=== PATIENT | male | born 1945 ===

== ENCOUNTER 2017-09-28 09:04 | Day surgery (SDC) | payer OTHER ==
[2017-09-28] MEDS ORDERED: Verapamil 2 ML ONE (09:24)
[2017-09-28] MEDS ORDERED: DiphenhydrAMINE 50 mg/ml Inj ONE (09:24)
[2017-09-28] MEDS ORDERED: Adenosine 90 mg/30mL IV ONE (09:24)
[2017-09-28] MEDS ORDERED: Lidocaine 2% Inj (20ml) ONE (09:24)
[2017-09-28] MEDS ORDERED: Iodixanol 320 MG/ML 200 ML BOTTLE IV ONE (09:25)
[2017-09-28] MEDS ORDERED: Midazolam 2 MG/2 ML VIAL ONE ×2 (09:25→10:33)
[2017-09-28] MEDS ORDERED: HEPARIN SODIUM/NS 2,000 ML IV ONE (09:25)
[2017-09-28] MEDS ORDERED: Bacitracin 500 Units/gm Oint Foilpak UD TOP ONE (11:38)
[2017-09-28] MEDS ORDERED: Heparin25000 units/250ml 1/2NS 25,000 UNITS/250 ML BAG IV SCH (12:45)
[2017-09-28] MEDS ORDERED: Bacitracin 500 Units/gm Oint Foilpak UD ONE (16:29)
[2017-09-28] MEDS ORDERED: Insulin Reg-LOW-Coverage SC SCH (16:30)
[2017-09-28 17:09] VITALS: BP 157/84
[2017-09-28 17:39] VITALS: RESP 15; TEMP 97.9
[2017-09-28 19:09] VITALS: PULSE 89
--- NOTE | 2017-09-28 21:42 | CARDCATH ---
PROCEDURE DATE: 09/28/2017 INDICATIONS: Mr. Isidro Couch is a 72-year-old male, who presented to [facility] with [id number] SC. The patient was transferred to [facility] for evaluation of [id number] SC. PROCEDURES PERFORMED: Left heart catheterization with selective left and right coronary angiogram via left radial arterial access. Fractional flow reserve of left after anterior descending and left circumflex coronary artery. Left ventriculogram. ANGIOGRAPHIC FINDINGS: Left main is a large-sized vessel, bifurcates into left anterior descending and left circumflex coronary artery. Left main has diffuse 40% stenosis, severely calcified with pressure damping noted on engagement with a guiding catheter. LAD has mid 80% stenosis. FFR physiologically significant at 0.71 without adenosine infusion. Diffuse proximal 50, distal vessel mild stenosis, gives off two medium-sized diagonal branches. Left circumflex runs in the AV groove, which gives a large obtuse marginal branch, has mid 65% stenosis. FFR physiologically significant at 0.77. Right coronary artery is a medium-sized vessel, diffusely calcified, 50% stenosis with a distal 90% stenosis. Right PD and PLV have diffuse 60% stenosis. Left ventriculogram showed normal ejection fraction. Left ventricular end-diastolic pressure was 21 mmHg. IMPRESSION: Severe triple-vessel disease, normal left ventricular ejection fraction. RECOMMENDATIONS: The patient needs to be transferred to [facility] for urgent CABG by Dr. Julio C Lakhani. Keep the patient on aspirin, statins, and IV heparin. The patient to be arranged for transfer for his further cardiovascular care. Hermilo Brooks MD
== END 2017-09-28 21:49 | disposition short-term general hospital (02) ==
LOC: CATH 09:04 → 2RNO 11:24 → CATH 21:49
PROVIDERS: ATTEND Internal Medicine Interventional Cardiology
DX: I21.4 Non-ST elevation (NSTEMI) myocardial infarction (principal); I25.10 Atherosclerotic heart disease of native coronary artery without angina pectoris
CPT/HCPCS: 36415; 82948; 85730; 93458; 93571; 93572; 99152; C1769 ×2; C1887 ×2; C1894; J0153; J1200; J1644 ×3; J2250; J3010; J7030

== ENCOUNTER 2017-10-11 13:52 | Inpatient (IN) | payer MEDICARE, OTHER ==
[~2017-10-11 13:52] MED LIST: cefTRIAXone 1 gm 1 GM/100 ML BAG IVPB SCH
[2017-10-11] MEDS ORDERED: Pantoprazole 40 MG in Sodium Chloride 0.9% 100 ML IV STA (14:22)
[2017-10-11] MEDS ORDERED: Sodium Chloride 0.9% 500 ML IV ONE (14:23)
--- NOTE | 2017-10-11 14:26 | ED PDOC ---
Arrival/HPI - General Chief Complaint: GI Problem Time Seen by Provider: 10/11/17 14:00 Historian: Patient, Family (Son) - History of Present Illness Time/Duration: Other (Last night) Symptom Onset: Sudden Symptom Course: Unchanged Severity Level: Severe Activities at Onset: Rest Associated Symptoms (Text): 10/11/17 14:24 Patient was discharged from another hospital 5 days ago following surgery for multiple vessel CABG. Overnight he developed severe nausea vomiting and diarrhea. He denies abdominal pain. No fever or chills. No injury or trauma. No genitourinary symptoms. No one else is ill at home. Past Medical History - Infectious Disease Hx of Infectious Diseases: None - Cardiac Hx PR: Yes Hx Peripheral Vascular Disease: Yes Other/Comment: triple bypass - Pulmonary Hx Respiratory Disorders: No - Neurological Hx Transient Ischemic Attacks (TIA): Yes (2017) - HEENT Hx HEENT Disorder: No - Renal Hx Renal Disorder: No - Endocrine/Metabolic Hx Diabetes Mellitus Type 2: Yes - Hematological/Oncological Hx Blood Disorders: No - Integumentary Hx Dermatological Disorder: No - Musculoskeletal/Rheumatological Hx Arthritis: Yes Hx Unsteady Gait: Yes (Recently/use a cane) - Gastrointestinal Hx Gastrointestinal Disorders: No - Genitourinary/Gynecological Hx Genitourinary Disorders: No - Psychiatric Hx Psychophysiologic Disorder: No Hx Substance Use: No - Surgical History Other/Comment: Triple bypass. Greenfill filter Family/Social History - Physician Review Nursing Documentation Reviewed: Yes Family/Social History: Unknown Family HX Smoking Status: Former Smoker (Quit smoking 30 years ago) Hx Alcohol Use: No Hx Substance Use: No Allergies/Home Meds Allergies/Adverse Reactions: Allergies No Known Allergies Allergy (Verified 10/11/17 14:12) Home Medications: Home Meds Medication Instructions Recorded Confirmed Unobtainable 10/11/17 10/11/17 Review of Systems - Physician Review All systems were reviewed & negative as marked: Yes - Review of Systems Constitutional: Fatigue. absent: Fevers Respiratory: Cough. absent: SOB, Sputum, Wheezing Cardiovascular: absent: Chest Pain, Palpitations, Syncope Gastrointestinal: Diarrhea, Nausea, Vomiting, Anorexia. absent: Abdominal Pain , Constipation Genitourinary Male: absent: Dysuria, Frequency, Hematuria Neurological: absent: Headache, Dizziness, Focal Weakness Physical Exam Vital Signs Temp Pulse Resp BP Pulse Ox 10/11/17 16:13 88 18 126/84 98 10/11/17 14:01 98.7 F 91 H 18 122/87 98 Temperature: Afebrile Blood Pressure: Normal Pulse: Regular Respiratory Rate: Normal Appearance: Positive for: Well-Appearing, Non-Toxic, Uncomfortable, Other (Pale and chronically ill-appearing) Pain Distress: None Mental Status: Positive for: Alert and Oriented X 3 - Systems Exam Head: Present: Atraumatic, Normocephalic Pupils: Present: PERRL Extroacular Muscles: Present: EOMI Conjunctiva: Present: Normal Mouth: Present: Moist Mucous Membranes Pharnyx: No: ERYTHEMA, EXUDATE, TONSILS ENLARGED Neck: Present: Normal Range of Motion Respiratory/Chest: Present: Clear to Auscultation, Good Air Exchange, Decreased Breath Sounds, Other (Chest wounds are clean and dry with no signs of infection) . No: Respiratory Distress, Accessory Muscle Use, Tender to Palpation Cardiovascular: Present: Regular Rate and Rhythm, Normal S1, S2. No: Murmurs Abdomen: Present: Normal Bowel Sounds. No: Tenderness, Distention, Peritoneal Signs, Rebound, Guarding Back: Present: Normal Inspection. No: CVA Tenderness, Midline Tenderness, Paraspinal Tenderness Upper Extremity: Present: Normal Inspection. No: Cyanosis, Edema Lower Extremity: Present: Normal Inspection. No: Edema Neurological: Present: GCS=15, CN II-XII Intact, Speech Normal, Motor Func Grossly Intact Skin: Present: Warm, Dry, Normal Color. No: Rashes Psychiatric: Present: Alert, Oriented x 3, Normal Insight, Normal Concentration Medical Decision Making ED Course and Treatment: 10/11/17 15:33 EKG shows normal sinus rhythm rate approximately 95 with Q waves inferiorly and a right bundle branch block and no acute ST or T-wave changes with no old available for comparison. 10/11/17 15:47 Discussed with who will admit to 's service. - Lab Interpretations Lab Results: 10/11/17 14:40 10/11/17 14:40 Lab Results 10/11/17 14:40: Sodium 141, Potassium 4.4, Chloride 105, Carbon Dioxide 22, Anion Gap 18, BUN 17, Creatinine 0.9, Est GFR ( Amer) > 60, Est GFR (Non- Af Amer) > 60, Random Glucose 173 H, Calcium 9.5, Total Bilirubin 0.6, AST 51, ALT 43, Alkaline Phosphatase 88, Lactate Dehydrogenase 707 H, Total Creatine Kinase 176, Troponin I 0.03, Total Protein 7.5, Albumin 3.8, Globulin 3.7, Albumin/Globulin Ratio 1.0 L, Amylase 156 H, Lipase 996 H 10/11/17 14:40: PT 12.3, INR 1.08, APTT 28.1 10/11/17 14:40: WBC 11.2 H, RBC 3.75, Hgb 10.2 L, Hct 31.3 L, MCV 83.5, MCH 27.2 , MCHC 32.6, RDW 15.1 H, Plt Count 369, MPV 10.0, Gran % 76.7 H, Lymph % (Auto) 16.4 L, [place] % (Auto) 5.2, Eos % (Auto) 1.4 L, Baso % (Auto) 0.3, Gran # 8.56 H , Lymph # (Auto) 1.8, [place] # (Auto) 0.6, Eos # (Auto) 0.2, Baso # (Auto) 0.03 - RAD Interpretation Radiology Orders: 10/11/17 14:22 CHEST PORTABLE [RAD] Stat 10/11/17 15:28 ABDOMEN COMPLETE [US] Stat Chest one view shows a small left pleural effusion with cardiomegaly and hardware. No infiltrate. Ultrasound of the abdomen is read by the radiologist shows no acute findings Pathology Secretary: Radiologist - Medication Orders Current Medication Orders: Discontinued Medications Pantoprazole Sodium 40 mg/ (Sodium Chloride) 100 mls @ 400 mls/hr IV STAT STA Stop: 10/11/17 14:36 Last Admin: 10/11/17 14:52 Dose: 400 mls/hr eMAR Start Stop Document 10/11/17 14:52 EQ (Rec: 10/11/17 14:52 EQ [id number]) Intravenous Solution Start Date 10/11/17 Start Time 14:52 Sodium Chloride (Sodium Chloride 0.9%) 500 mls @ 500 mls/hr IV ONCE ONE Stop: 10/11/17 15:22 Last Admin: 10/11/17 14:53 Dose: 500 mls/hr eMAR Start Stop Document 10/11/17 14:53 EQ (Rec: 10/11/17 14:53 EQ [id number]) Intravenous Solution Start Date 10/11/17 Start Time 14:53 Ondansetron HCl (Zofran Inj) 4 mg IVP STAT STA Stop: 10/11/17 14:23 Last Admin: 10/11/17 14:53 Dose: 4 mg IVP Administration Document 10/11/17 14:53 EQ (Rec: 10/11/17 14:53 EQ [id number]) Charges for Administration # of IVP Administrations 1 Disposition/Present on Arrival - Present on Arrival Any Indicators Present on Arrival: No History of DVT/PE: No History of Uncontrolled Diabetes: No Urinary Catheter: No History of Decub. Ulcer: No History Surgical Site Infection Following: None - Disposition Have Diagnosis and Disposition been Completed?: Yes Diagnosis: Pancreatitis Disposition: HOSPITALIZED Disposition Time: 15:48 Patient Plan: Admission Patient Problems: Current Active Problems Problem Status Onset Pancreatitis Acute Condition: FAIR
--- NOTE | 2017-10-11 14:59 | RAD ---
HISTORY: Weakness COMPARISON: No prior. FINDINGS: LUNGS: Retrocardiac, left lower lobe infiltrate PLEURA: Left pleural effusion. CARDIOVASCULAR: No radiographic findings to suggest acute or significant cardiovascular disease. Incidental Finding(s): Postoperative changes related to sternotomy. OSSEOUS STRUCTURES: No significant abnormalities. VISUALIZED UPPER ABDOMEN: Normal. OTHER FINDINGS: None. IMPRESSION: Left lower lobe infiltrate inseparable from left pleural effusion.
[2017-10-11 15:00] LABS: BASO # 0.03 K/mm3 (0.0-2.0); BASO % 0.3 % (0.0-3.0); EOS # 0.2 (0.0-0.7); EOS % 1.4 % (1.5-5.0); GRAN # 8.56 (1.4-6.5); GRAN % 76.7 % (50.0-68.0); HEMOGLOBIN 10.2 g/dL (14.0-18.0); LYMPH # 1.8 (1.2-3.4); LYMPH % 16.4 % (22.0-35.0); MEAN CELL VOLUME 83.5 fl (80.0-105.0); MEAN CORPUSCULAR HEMOGLOBIN 27.2 pg (25.0-35.0); MEAN CORPUSCULAR HGB CONC 32.6 g/dl (31.0-37.0); MONO # 0.6 (0.1-0.6); MONO % 5.2 % (1.0-6.0); RBC 3.75 10^6/uL (3.5-6.1); RED CELL DISTRIBUTION WIDTH 15.1 % (11.5-14.5); WHITE BLOOD COUNT 11.2 10^3/ul (4.5-11.0)
[2017-10-11 15:04] LABS: INR 1.08 (0.93-1.08); PARTIAL THROMBOPLASTIN TIME 28.1 Seconds (25.1-36.5); PROTHROMBIN TIME 12.3 SECONDS (9.4-12.5)
[2017-10-11 15:20] LABS: ALBUMIN 3.8 g/dL (3.0-4.8); ALT/SGPT 43 U/L (7-56); AMYLASE 156 U/L (35-125); AST/SGOT 51 U/L (17-59); BLOOD UREA NITROGEN 17 mg/dL (7-21); CALCIUM 9.5 mg/dL (8.4-10.5); GFR AFRICAN-AMERICAN > 60; GFR NON-AFRICAN AMERICAN > 60; LIPASE 996 U/L (23-300)
[2017-10-11 15:31] LABS: TROPONIN I 0.03 ng/mL
--- NOTE | 2017-10-11 17:16 | US ---
EXAM: US Abdomen Complete EXAM DATE/TIME: 10/11/2017 3:28 PM CLINICAL HISTORY: 72 years old, male; Pain; Abdominal pain; Generalized; Additional info: Pancreatitis TECHNIQUE: Real-time ultrasound of the abdomen (complete) with image documentation. COMPARISON: No relevant prior studies available. FINDINGS: Liver: Unremarkable. No mass. No intrahepatic bile duct dilation. Gallbladder: Cholecystectomy. Common bile duct: Common bile duct measures 5.3 mm. No stones. No dilation. Pancreas: Obscured by bowel gas. Kidneys: Right kidney measures 10.6 x 4.5 x 4.6 cm. Left kidney measures 11.2 x 5.7 x 5.9 cm. No stones. No hydronephrosis. Spleen: Unremarkable. No splenomegaly. Aorta: Obscured by bowel gas. Inferior vena cava: Obscured. Pleural space: Bilateral small to moderate pleural effusions. IMPRESSION: 1. Nonvisualization of gallbladder, correlate with surgical history. 2. Bilateral small to moderate pleural effusions.
[2017-10-11] MEDS: Sodium Chloride 0.9% 1,000 ML IV SCH (18:45)
--- NOTE | 2017-10-11 19:45 | HP ---
HISTORY OF PRESENT ILLNESS: Mr. Couch is a 72-year-old male, underwent CABG 5 days ago at [facility]. Admitted with nausea, vomiting, abdominal pain. Ultrasound of the abdomen did not show any acute changes. Lipase is elevated. No bleeding from any site. He has history of TIA in the past, no recent attack. Diabetes mellitus type 2, fairly controlled with current medications. History of unsteady gait, walks with walker. PAST MEDICAL HISTORY: Triple bypass surgery, history of TIA, hypertension, diabetes mellitus type 2, arthritis, unsteady gait. PAST SURGICAL HISTORY: Triple bypass surgery, IVC filter. FAMILY HISTORY: Noncontributory. PERSONAL HISTORY: Former smoker, quit 30 years ago. No history of alcohol abuse. SOCIAL HISTORY: Lives at home. ALLERGIES: NO KNOWN DRUG ALLERGIES. REVIEW OF SYSTEMS: As per HPI. Rest of 12-point systems reviewed negative. PHYSICAL EXAMINATION GENERAL: Comfortable in bed, in no acute distress. VITAL SIGNS: Temperature 98.7, heart rate 91 per minute, respiratory rate 18 per minute, blood pressure 122/87, pulse ox is 98% room air. HEENT: Atraumatic. No lymphadenopathy. Pallor positive. CHEST: Air entry present and equal bilaterally. No added sounds. CARDIOVASCULAR: S1 and S2 normal. No murmur, no gallop. ABDOMEN: Soft, nontender. No hepatosplenomegaly. EXTREMITIES: No edema. SPINE: Nontender. LABORATORY DATA: White count 11.2, hemoglobin 10.2, hematocrit 31.3, platelet 369. Sodium 141, potassium 4.4, BUN 17, creatinine 0.9, glucose 173, amylase 156, lipase 996. INR . ASSESSMENT: 1. Acute pancreatitis. 2. Coronary artery disease status post triple bypass surgery. 3. Anemia. 4. Leukocytosis. 5. History of transient ischemic attack. PLAN: He will be admitted to the hospital telemonitoring, n.p.o., will give gentle hydration at 60 mL an hour, normal saline. Blood culture and urine culture to be sent. IV antibiotics with ceftriaxone. We will consult Dr. Hoyos. Consult Dr. Sanchez GI. Cardiology consultation, Dr. Reynolds, for further recommendation, has a recent bypass surgery. Protonix 40 mg IV daily. Medication history could not be obtained. We will continue aspirin 81 mg daily. Kristine Pozo MD [facility] # [id number] MAGDALENE
[2017-10-11 20:06] VITALS: BMI 26.6
[2017-10-11] MEDS: Vancomycin 1gm in NS 250ml 1 GM/250 ML BAG IVPB SCH (21:55)
[2017-10-11] MEDS: Meropenem IV 1 gm in NS 50 ML IVPB SCH (21:56)
[2017-10-11] MEDS ORDERED: metroNIDAZOLE IV 500 mg/100 ml 500 MG/100 ML BAG IVPB SCH (23:00)
[2017-10-12] MEDS: Meropenem IV 1 gm in NS 50 ML IVPB SCH ×3 (05:08→23:30)
[2017-10-12 06:01] LABS: URINE BILIRUBIN NEGATIVE (NEGATIVE); URINE BLOOD NEGATIVE (NEGATIVE); URINE GLUCOSE (UA) NEGATIVE (NEGATIVE); URINE LEUKOCYTE ESTERASE NEGATIVE Leu/uL (NEGATIVE); URINE PROTEIN 100 mg/dL (<30 mg/dL); URINE UROBILINOGEN 0.2 E.U./dL (<1 E.U./dL)
[2017-10-12 06:06] LABS: URINE APPEARANCE CLEAR (CLEAR); URINE COLOR YELLOW (YELLOW)
[2017-10-12 06:15] LABS: URINE RBC 0 - 2 /hpf (0-2)
[2017-10-12 06:16] LABS: URINE BACTERIA OCC (NEG); URINE WBC 0 - 2 /hpf (0-6)
[2017-10-12] MEDS: Vancomycin 1gm in NS 250ml 1 GM/250 ML BAG IVPB SCH ×2 (09:33→20:24)
--- NOTE | 2017-10-12 13:58 | CP.PCM.CON ---
History of Present Illness - History of Present Illness History of Present Illness: 72 year old male with PMH of CAD S/P CABG about 5-6 days ago, history of TIA, DM , S/P Claude filter placement, peripheral vascular disease was brought in to [facility] because of nausea and vomiting a day prior to admission. He was having vague abdominal pain, but denies having diarrhea, no headache or dizziness, no fever or chills, dry cough, no sore throat, no rhinorrhea, no dysuria, no dysphagia. Lipase levels were elevated on admission. CXR is showing left lower lobe effusion and questionable infiltrate. Infectious diseases consult is requested to further evaluate and manage. Review of Systems - Review of Systems All systems: reviewed and no additional remarkable complaints except (as per HPI ) Past Patient History - Infectious Disease Hx of Infectious Diseases: None - Past Social History Smoking Status: Never Smoked - CARDIAC Hx Peripheral Vascular Disease: Yes Other/Comment: triple bypass - PULMONARY Hx Respiratory Disorders: No - NEUROLOGICAL Hx Transient Ischemic Attacks (TIA): Yes (2016) - HEENT Hx HEENT Problems: No - RENAL Hx Chronic Kidney Disease: No - ENDOCRINE/METABOLIC Hx Diabetes Mellitus Type 2: Yes - HEMATOLOGICAL/ONCOLOGICAL Hx Blood Disorders: No - INTEGUMENTARY Hx Dermatological Problems: No - MUSCULOSKELETAL/RHEUMATOLOGICAL Hx Falls: No - GASTROINTESTINAL Hx Gastrointestinal Disorders: No - GENITOURINARY/GYNECOLOGICAL Hx Genitourinary Disorders: No - PSYCHIATRIC Hx Psychophysiologic Disorder: No - SURGICAL HISTORY Other/Comment: Triple bypass. [place] filter Meds Allergies/Adverse Reactions: Allergies Allergy/AdvReac Type Severity Reaction Status Date / Time No Known Allergies Allergy Verified 10/11/17 14:12 - Medications Medications: Current Medications Aspirin (Aspirin Chewable) 81 mg PO DAILY [facility] Sodium Chloride (Sodium Chloride 0.9%) 1,000 mls @ 60 mls/hr IV .[id number] [facility] Last Admin: 10/11/17 18:45 Dose: 60 mls/hr Meropenem (Merrem Iv 1 Gm Premix) 50 mls @ 100 mls/hr IVPB Q8 ANA LILIA PRN Reason: Protocol Stop: 10/20/17 22:01 Last Admin: 10/12/17 05:08 Dose: 100 mls/hr Vancomycin HCl (Vancomycin 1gm) 1 gm in 250 mls @ 167 mls/hr IVPB Q12H ANA LILIA PRN Reason: Protocol Stop: 10/20/17 19:46 Last Admin: 10/11/17 21:55 Dose: 167 mls/hr Metronidazole (Flagyl) 500 mg in 100 mls @ 100 mls/hr IVPB Q8 ANA LILIA PRN Reason: Protocol Last Admin: 10/12/17 05:07 Dose: 100 mls/hr Ondansetron HCl (Zofran Inj) 4 mg IVP Q6H [facility] Last Admin: 10/12/17 02:01 Dose: Not Given Pantoprazole Sodium (Protonix Inj) 40 mg IVP DAILY [facility] Physical Exam - Constitutional Appears: Non-toxic, Chronically Ill - Head Exam Head Exam: NORMAL INSPECTION - ENT Exam ENT Exam: Mucous Membranes Moist - Neck Exam Neck exam: Negative for: Meningismus - Respiratory Exam Respiratory Exam: Decreased Breath Sounds - Cardiovascular Exam Cardiovascular Exam: +S1, +S2 - GI/Abdominal Exam GI & Abdominal Exam: Soft. absent: Tenderness Results - Vital Signs Recent Vital Signs: Last Vital Signs Temp 97.9 F 10/12/17 07:47 Pulse 98 H 10/12/17 07:47 Resp 20 10/12/17 07:47 BP 130/64 10/12/17 07:47 Pulse Ox 99 10/12/17 07:47 - Labs Result Diagrams: 10/11/17 14:40 10/11/17 14:40 Labs: Laboratory Results - last 24 hr 10/11/17 10/11/17 10/12/17 21:10 21:45 04:53 POC Glucose (mg/dL) 146 H Triglycerides 132 Urine Color Yellow Urine Appearance Clear Urine pH 6.0 Ur Specific [place] >= 1.030 Urine Protein 100 H Urine Glucose (UA) Negative Urine Ketones Trace H Urine Blood Negative Urine Nitrate Negative Urine Bilirubin Negative Urine Urobilinogen 0.2 Ur Leukocyte Esterase Negative Urine RBC 0 - 2 Urine WBC 0 - 2 Ur Epithelial Cells 1 - 3 Urine Bacteria Occ 10/12/17 07:35 POC Glucose (mg/dL) 99 Triglycerides Urine Color Urine Appearance Urine pH Ur Specific [place] Urine Protein Urine Glucose (UA) Urine Ketones Urine Blood Urine Nitrate Urine Bilirubin Urine Urobilinogen Ur Leukocyte Esterase Urine RBC Urine WBC Ur Epithelial Cells Urine Bacteria Assessment & Plan - Assessment and Plan (Free Text) Plan: Assessment systemic inflammatory response syndrome, consider due to acute pancreatitis R/O sepsis from Left lower lobe HCAP CAD S/P CABG about 5-6 days ago history of TIA DM S/P Dubberly filter placement peripheral vascular disease Plan Started the patient on Vancomycin and Merrem pending blood cx, urine cx, PCT; should have repeat CXR will monitor clinically
[2017-10-12] MEDS: Sodium Chloride 0.9% 1,000 ML IV SCH (17:00)
--- NOTE | 2017-10-12 20:21 | PN ---
DATE: SUBJECTIVE: Patient is 72-year-old, seen and examined, lying in bed. He had open heart surgery 5 days ago and has been having diarrhea for the last 2 to 3 days, that is why he came to the emergency room. He was given one dose of Imodium last night and his diarrhea subsided, complaining of feeling nauseous and no appetite. OBJECTIVE: VITAL SIGNS: He is afebrile, pulse 93, respirations 20, blood pressure 126/52. LUNGS: Bilateral good air flow. No rhonchi or crackles. HEART: S1 and S2 audible. ABDOMEN: Soft, nontender. No rebound. NEUROLOGICAL: He is awake, alert, oriented, and communicative. LABORATORY EXAM: His blood sugar is 90. Had x-ray of the chest done that shows left lower lobe infiltrate, questionable left pleural effusion. He had abdominal sonogram done, shows nonvisualization of gallbladder and bilateral small to moderate pleural effusion. ASSESSMENT AND PLAN: 1. Recent open heart surgery, patient still has stitches healing. 2. Diarrhea, etiology unknown yet. We will rule out C. diff. that was ordered last night. Start patient on liquid diet. We will continue him on metoprolol. He is on meropenem, Plavix, Protonix, and vancomycin. An order for CT scan of the chest. We will follow up his electrolyte in a.m. Ellie Osorio MD
--- NOTE | 2017-10-12 22:30 | CARD ---
APPROVED REPORT EKG Measurement Heart [id number] <Conclusion> Normal sinus rhythm Right bundle branch block Abnormal ECG
[2017-10-12] MEDS: Insulin Reg-LOW-Coverage SC SCH (23:04)
[2017-10-13] MEDS: Meropenem IV 1 gm in NS 50 ML IVPB SCH ×3 (05:53→22:52)
[2017-10-13] MEDS ORDERED: Barium Sulfate Susp 2.1% w/v, 2.0% w/w 450 mL Bottle PO ONE (06:44)
[2017-10-13] MEDS: Insulin Reg-LOW-Coverage SC SCH ×4 (07:53→22:51)
--- NOTE | 2017-10-13 08:05 | CON ---
DATE: 10/12/2017 REASON FOR CONSULTATION: Nausea, vomiting, diarrhea, elevated pancreatic enzymes. HISTORY OF PRESENT ILLNESS: This is a 72-year-old patient who was with a past medical history of coronary artery disease, status post CABG about six days ago, history of TIA, diabetes mellitus, status post Claude filter placement, peripheral vascular disease, brought to the hospital for complaints of nausea, vomiting and also, episodes of loose bowel movements. Patient had an ultrasound scan done, no stones. No history of vomiting blood. No bleeding per rectum. PAST MEDICAL HISTORY: Other past medical history is status post coronary artery bypass graft about six days ago [facility]), hypertension, and diabetes mellitus. PAST SURGICAL HISTORY: Positive as above. FAMILY HISTORY: Noncontributory. SOCIAL HISTORY: Denies alcohol, smoking. ALLERGIES: NO KNOWN DRUG ALLERGIES. REVIEW OF SYSTEMS: Positive as above. Other systems reviewed and other 10-point systems reviewed, negative. PHYSICAL EXAMINATION GENERAL: Patient is lying on the bed, not in acute distress. VITAL SIGNS: Temperature is 97.4, pulse 93, blood pressure 146/67, respirations 20, O2 saturation 96%. HEENT: Atraumatic, anicteric. NECK: Supple. HEART: S1 and S2 heard. LUNGS: Bilateral air entry present. ABDOMEN: Soft. No tenderness. EXTREMITIES: No edema. No cyanosis. NEUROLOGIC: Alert, oriented. Moves all the extremities. LABORATORY DATA: Hemoglobin 10.2, hematocrit 31.3, WBC 11.2, platelets 369,000. Chemistry showed the amylase is 156, lipase 996. Patient's ultrasound scan of the abdomen shows no gallstones.. CBD measured 5.3 mm. IMPRESSION: This is a 72-year-old patient status post coronary artery bypass graft about six days ago, now admitted with nausea, vomiting, and diarrhea. Patient does have mildly elevated amylase and lipase level, status post cholecystectomy. Common bile duct appears normal clinically. DIFFERENTIAL DIAGNOSIS: Should include: 1. Gastroenteritis. 2. Clostridium difficile colitis. 3. ?? Pancreatitis. The mildly elevated amylase and lipase level could be related to even the gastroenteritis. RECOMMENDATIONS 1. Stool for C. diff. 2. Stool for culture. 3. Would request CT scan of the abdomen and pelvis with p.o. and IV contrast in view of his age to rule out any focal pancreatic lesion and patient is also diabetic. Patient has been on metformin at home, he has been on hold now. We will hydrate the patient. We will consider CT with p.o. and IV contrast with pancreatic protocol in the morning. The other comorbidities include left lower lobe infiltrate. Patient has been now seen and was evaluated by the ID and started on Merrem and also p.o. vancomycin. Thank you very much for allowing me to participate in the care of the patient. Katiuska Sanchez MD MTDDevika
[2017-10-13] MEDS: Vancomycin 1gm in NS 250ml 1 GM/250 ML BAG IVPB SCH ×2 (08:28→20:00)
[2017-10-13] MEDS ORDERED: Iohexol 350 MG/100 ML VIAL ONE (09:40)
--- NOTE | 2017-10-13 11:35 | CT ---
PROCEDURE: CT Chest, Abdomen and Pelvis with intravenous contrast HISTORY: r/o pneumonia COMPARISON: None. TECHNIQUE: IV dose administered: 100 cc of Omni 350 Radiation dose: Total exam DLP = 886 mGy-cm. This CT exam was performed using one or more of the following dose reduction techniques: Automated exposure control, adjustment of the mA and/or kV according to patient size, and/or use of iterative reconstruction technique. FINDINGS: CT CHEST WITH CONTRAST: LUNGS: There is a small focal area of consolidation in the left lower lobe adjacent to the pleural effusion MEDIASTINUM: Unremarkable. Normal caliber aorta and pulmonary arterial trunk. No aortic dissection. Normal size heart. Extensive coronary artery calcification LYMPH NODES: Unremarkable. PLEURA: Moderate size left pleural effusion BONES: Unremarkable. OTHER FINDINGS: None. CT ABDOMEN AND PELVIS: LIVER: Unremarkable. No gross lesion or ductal dilatation. GALLBLADDER AND BILE DUCTS: Gallbladder removed PANCREAS: Unremarkable. No gross lesion or ductal dilatation. SPLEEN: Unremarkable. ADRENALS: Unremarkable. No mass. KIDNEYS AND URETERS: Unremarkable. No hydronephrosis. No solid mass. VASCULATURE: A caval filter is present BOWEL: Unremarkable. No obstruction. No gross mural thickening. APPENDIX: Normal appendix. PERITONEUM: Unremarkable. No free fluid. No free air. LYMPH NODES: Unremarkable. No enlarged lymph nodes. BLADDER: Unremarkable. REPRODUCTIVE: Unremarkable. BONES: No acute fracture. OTHER FINDINGS: None. IMPRESSION: Moderate size left pleural effusion with minimal consolidation at the left lung base. No acute intra-abdominal findings
[2017-10-13] MEDS: Sodium Chloride 0.9% 1,000 ML IV SCH (13:51)
--- NOTE | 2017-10-13 17:20 | CP.PCM.PN ---
Subjective - Date & Time of Evaluation Date of Evaluation: 10/13/17 Time of Evaluation: 12:40 - Subjective Subjective: No abdominal pain, no fevers, nausea has improved. Objective - Vital Signs/Intake and Output Vital Signs (last 24 hours): Temp Pulse Resp BP Pulse Ox 98.8 F 100 H 16 164/78 H 97 10/13/17 08:42 10/13/17 08:42 10/13/17 08:42 10/13/17 08:42 10/13/17 08:42 Intake and Output: 10/13/17 10/13/17 06:59 18:59 Intake Total 2570 Output Total 350 Balance 2220 - Medications Medications: Current Medications Aspirin (Aspirin Chewable) 81 mg PO DAILY [facility] Last Admin: 10/12/17 09:32 Dose: 81 mg Clopidogrel Bisulfate (Plavix) 75 mg PO DAILY [facility] Last Admin: 10/12/17 14:00 Dose: 75 mg Sodium Chloride (Sodium Chloride 0.9%) 1,000 mls @ 60 mls/hr IV .[id number] [facility] Last Admin: 10/12/17 17:00 Dose: 60 mls/hr Meropenem (Merrem Iv 1 Gm Premix) 50 mls @ 100 mls/hr IVPB Q8 [facility] PRN Reason: Protocol Stop: 10/20/17 22:01 Last Admin: 10/13/17 05:53 Dose: 100 mls/hr Vancomycin HCl (Vancomycin 1gm) 1 gm in 250 mls @ 167 mls/hr IVPB Q12H [facility] PRN Reason: Protocol Stop: 10/20/17 19:46 Last Admin: 10/13/17 08:28 Dose: 167 mls/hr Insulin Human Regular (Humulin R Low) 0 units SC ACHS [facility] PRN Reason: Protocol Last Admin: 10/13/17 07:53 Dose: Not Given Metoprolol Tartrate (Lopressor) 25 mg PO BID [facility] Ondansetron HCl (Zofran Inj) 4 mg IVP Q6H PRN PRN Reason: Nausea/Vomiting Pantoprazole Sodium (Protonix Inj) 40 mg IVP DAILY [facility] Last Admin: 10/12/17 09:32 Dose: 40 mg - Labs Labs: PT 12.3 SECONDS (9.4-12.5) 10/11/17 14:40 INR 1.08 (0.93-1.08) 10/11/17 14:40 APTT 28.1 Seconds (25.1-36.5) 10/11/17 14:40 - Constitutional Appears: Non-toxic, Chronically Ill - Head Exam Head Exam: NORMAL INSPECTION - ENT Exam ENT Exam: Mucous Membranes Moist - Neck Exam Neck Exam: absent: Meningismus - Respiratory Exam Respiratory Exam: Decreased Breath Sounds - Cardiovascular Exam Cardiovascular Exam: +S1, +S2 - GI/Abdominal Exam GI & Abdominal Exam: Soft. absent: Tenderness Assessment and Plan - Assessment and Plan (Free Text) Plan: Assessment systemic inflammatory response syndrome, consider due to acute pancreatitis R/O sepsis from Left lower lobe HCAP CAD S/P CABG about 5-6 days ago history of TIA DM S/P Claude filter placement peripheral vascular disease Plan on Vancomycin and Merrem day 2; follow up final blood cx, urine cx, PCT and CT C /A/P - if these are negative will d/c antibiotics will continue to monitor clinically
[2017-10-14] MEDS: Meropenem IV 1 gm in NS 50 ML IVPB SCH ×3 (05:23→21:59)
[2017-10-14 08:01] LABS: HEMOGLOBIN 8.5 g/dL (14.0-18.0); MEAN CELL VOLUME 82.3 fl (80.0-105.0); MEAN CORPUSCULAR HEMOGLOBIN 26.8 pg (25.0-35.0); MEAN CORPUSCULAR HGB CONC 32.6 g/dl (31.0-37.0); MEAN PLATELET VOLUME 9.2 fl (7.0-11.0); RBC 3.17 10^6/uL (3.5-6.1); RED CELL DISTRIBUTION WIDTH 15.1 % (11.5-14.5); WHITE BLOOD COUNT 3.5 10^3/ul (4.5-11.0)
[2017-10-14 08:27] LABS: ALBUMIN 2.8 g/dL (3.0-4.8); ALT/SGPT 51 U/L (7-56); AMYLASE 98 U/L (35-125); AST/SGOT 54 U/L (17-59); BLOOD UREA NITROGEN 8 mg/dL (7-21); CALCIUM 8.1 mg/dL (8.4-10.5); GFR AFRICAN-AMERICAN > 60; GFR NON-AFRICAN AMERICAN > 60; LIPASE 609 U/L (23-300)
[2017-10-14] MEDS: Insulin Reg-LOW-Coverage SC SCH ×4 (08:42→22:53)
--- NOTE | 2017-10-14 09:03 | PN ---
DATE: 10/13/2017 SUBJECTIVE: The patient is 72 years old, seen and examined, lying in bed, seems to be comfortable. Still complaining of diarrhea. Stool for C. diff is negative. Has had CT of the abdomen done yesterday and started to have diarrhea again. PHYSICAL EXAMINATION: VITAL SIGNS: He is afebrile, pulse 72, respirations 18, blood pressure 136/68. LUNGS: Bilateral good airflow. No rhonchi or crackle. HEART: S1 and S2 audible. ABDOMEN: Soft. Nontender. No rebound. No guarding. NEUROLOGIC: He is awake, alert, oriented, communicative, ambulatory. LABORATORY EXAM: Blood sugar is 104. He had CT scan of the abdomen and pelvis with contrast done and shows moderate-sized left pleural effusion with minimal consolidation at the left lung base. Otherwise, no acute intraabdominal problem. ASSESSMENT: 1. Recent open heart surgery. 2. Gastroenteritis. Status post Clostridium difficile negative. 3. Hypertension. 4. Hyperlipidemia. PLAN: I will give 1 dose of stat dose of Imodium. We will continue the patient on meropenem. Continue on Plavix and he is on IV fluids. He has been started on liquid diet. So plan is we will give stat dose of Imodium and continue on IV fluids. Discussed with Dr. Sanchez. Ellie Osorio MD
[2017-10-14] MEDS: Sodium Chloride 0.9% 1,000 ML IV SCH ×2 (09:44→15:09)
--- NOTE | 2017-10-14 13:03 | CP.PCM.PN ---
<AndresMaxwellmiranda - Last Filed: 10/14/17 12:57> Subjective - Date & Time of Evaluation Date of Evaluation: 10/14/17 Time of Evaluation: 07:00 - Subjective Subjective: GI Progress Note - Dr. Sanchez Pt was seen and examined at bedside. No acute complaints at this time. pt states his diarrhea has improved. His last bm was last night at approx 11pm. He denied abdominal pain. He would like to eat solid food. Pt denied fever, chills , sob, chest pains, abdominal pains, nausea, vomiting, or urinary symptoms. Objective - Vital Signs/Intake and Output Vital Signs (last 24 hours): Temp Pulse Resp BP Pulse Ox 99.4 F 97 H 20 146/80 97 10/14/17 08:19 10/14/17 09:39 10/14/17 08:19 10/14/17 09:39 10/14/17 08:19 Intake and Output: 10/14/17 10/14/17 06:59 18:59 Intake Total 2510 Balance 2510 - Medications Medications: Current Medications Aspirin (Aspirin Chewable) 81 mg PO DAILY [facility] Last Admin: 10/14/17 09:39 Dose: 81 mg Clopidogrel Bisulfate (Plavix) 75 mg PO DAILY [facility] Last Admin: 10/14/17 09:39 Dose: 75 mg Doxycycline Hyclate (Doryx) 100 mg PO Q12 [facility] PRN Reason: Protocol Last Admin: 10/14/17 09:39 Dose: 100 mg Sodium Chloride (Sodium Chloride 0.9%) 1,000 mls @ 60 mls/hr IV .[id number] [facility] Last Admin: 10/14/17 09:44 Dose: 60 mls/hr Meropenem (Merrem Iv 1 Gm Premix) 50 mls @ 100 mls/hr IVPB Q8 [facility] PRN Reason: Protocol Stop: 10/20/17 22:01 Last Admin: 10/14/17 05:23 Dose: 100 mls/hr Insulin Human Regular (Humulin R Low) 0 units SC ACHS [facility] PRN Reason: Protocol Last Admin: 10/14/17 12:51 Dose: Not Given Metoprolol Tartrate (Lopressor) 25 mg PO BID [facility] Last Admin: 10/14/17 09:39 Dose: 25 mg Ondansetron HCl (Zofran Inj) 4 mg IVP Q6H PRN PRN Reason: Nausea/Vomiting Pantoprazole Sodium (Protonix Inj) 40 mg IVP DAILY [facility] Last Admin: 10/14/17 09:39 Dose: 40 mg - Labs Labs: 10/14/17 07:20 10/14/17 07:20 PT 12.3 SECONDS (9.4-12.5) 10/11/17 14:40 INR 1.08 (0.93-1.08) 10/11/17 14:40 APTT 28.1 Seconds (25.1-36.5) 10/11/17 14:40 - Constitutional Appears: No Acute Distress - Head Exam Head Exam: ATRAUMATIC, NORMAL INSPECTION, NORMOCEPHALIC - Eye Exam Eye Exam: EOMI, Normal appearance, PERRL Pupil Exam: NORMAL ACCOMODATION, PERRL - ENT Exam ENT Exam: Mucous Membranes Moist, Normal Exam - Neck Exam Neck Exam: Full ROM, Normal Inspection. absent: Lymphadenopathy - Respiratory Exam Respiratory Exam: Clear to Ausculation Bilateral, NORMAL BREATHING PATTERN - Cardiovascular Exam Cardiovascular Exam: REGULAR RHYTHM, +S1, +S2. absent: Murmur - GI/Abdominal Exam GI & Abdominal Exam: Soft, Normal Bowel Sounds. absent: Tenderness - Back Exam Back Exam: NORMAL INSPECTION - Neurological Exam Neurological Exam: Alert, Awake, CN II-XII Intact, Normal Gait, Oriented x3 - Psychiatric Exam Psychiatric exam: Normal Affect, Normal Mood - Skin Skin Exam: Dry, Intact, Normal Color, Warm Assessment and Plan - Assessment and Plan (Free Text) Assessment: rule out sepsis from Left lower lobe HCAP CAD S/P CABG about 5-6 days ago Gastroenteritis acute pancreatitis IDDM HTN Plan: CT Abdomen pelvis reviewed C dif negative stool culture fu stool fat fu lipase downtrending, ADAT Merrem and po vanco as per ID <Laura,Kovil V - Last Filed: 10/15/17 00:19> Objective - Vital Signs/Intake and Output Vital Signs (last 24 hours): Temp Pulse Resp BP Pulse Ox 99.3 F 82 20 153/76 H 97 10/14/17 22:00 10/14/17 22:00 10/14/17 22:00 10/14/17 22:00 10/14/17 22:00 Intake and Output: 03/14/18 03/15/18 18:59 06:59 Intake Total 540 240 Output Total 200 Balance 540 40 - Medications Medications: Current Medications Aspirin (Aspirin Chewable) 81 mg PO DAILY [facility] Last Admin: 10/14/17 09:39 Dose: 81 mg Clopidogrel Bisulfate (Plavix) 75 mg PO DAILY [facility] Last Admin: 10/14/17 09:39 Dose: 75 mg Doxycycline Hyclate (Doryx) 100 mg PO Q12 [facility] PRN Reason: Protocol Last Admin: 10/14/17 21:59 Dose: 100 mg Sodium Chloride (Sodium Chloride 0.9%) 1,000 mls @ 60 mls/hr IV .[id number] [facility] Last Admin: 10/14/17 09:44 Dose: 60 mls/hr Meropenem (Merrem Iv 1 Gm Premix) 50 mls @ 100 mls/hr IVPB Q8 [facility] PRN Reason: Protocol Stop: 10/20/17 22:01 Last Admin: 10/14/17 21:59 Dose: 100 mls/hr Insulin Human Regular (Humulin R Low) 0 units SC ACHS [facility] PRN Reason: Protocol Last Admin: 10/14/17 22:53 Dose: Not Given Metoprolol Tartrate (Lopressor) 25 mg PO BID [facility] Last Admin: 10/14/17 18:55 Dose: 25 mg Ondansetron HCl (Zofran Inj) 4 mg IVP Q6H PRN PRN Reason: Nausea/Vomiting Pantoprazole Sodium (Protonix Ec Tab) 40 mg PO ACB [facility] - Labs Labs: 10/14/17 07:20 10/14/17 07:20 PT 12.3 SECONDS (9.4-12.5) 10/11/17 14:40 INR 1.08 (0.93-1.08) 10/11/17 14:40 APTT 28.1 Seconds (25.1-36.5) 10/11/17 14:40 Attending/Attestation - Attestation I have personally seen and examined this patient.: Yes I have fully participated in the care of the patient.: Yes I have reviewed all pertinent clinical information, including history, physical exam and plan: Yes Notes (Text): This is an addendum to GI progress report dictated by the Coach Driver.The patient was seen and examined earlier. Medical records, lab studies, imagings were reviewed. Last 24 hours events reviewed. Agreed with the above treatment plan as outlined in Coach Driver 's notes the with the addition of the following diarrhea has significantly improved of abdominal pain On examination abdomen soft no tenderness Status post CABG Acute diarrhea rule out gastroenteritis Mildly elevated lipase level probably secondary to gastroenteritis. CT scan with pancreatic protocol revealed normal pancreatic contour Pneumonia Continue the antibiotics as per ID And once the diet Discussed with Dr. Osorio Patient never had a colonoscopy would benefit from elective colonoscopy evaluation contact details for GI follow-up was given to the patient 10/15/17 00:17
--- NOTE | 2017-10-14 17:03 | CP.PCM.PN ---
Subjective - Date & Time of Evaluation Date of Evaluation: 10/14/17 Time of Evaluation: 12:25 - Subjective Subjective: Comfortable, no abdominal pain, no fevers. Objective - Vital Signs/Intake and Output Vital Signs (last 24 hours): Temp Pulse Resp BP Pulse Ox 99.5 F 72 18 136/68 95 10/13/17 14:00 10/13/17 14:00 10/13/17 14:00 10/13/17 14:00 10/13/17 14:00 Intake and Output: 10/14/17 10/14/17 06:59 18:59 Intake Total 2510 Balance 2510 - Medications Medications: Current Medications Aspirin (Aspirin Chewable) 81 mg PO DAILY [facility] Last Admin: 10/13/17 09:59 Dose: 81 mg Clopidogrel Bisulfate (Plavix) 75 mg PO DAILY [facility] Last Admin: 10/13/17 09:59 Dose: 75 mg Doxycycline Hyclate (Doryx) 100 mg PO Q12 [facility] PRN Reason: Protocol Sodium Chloride (Sodium Chloride 0.9%) 1,000 mls @ 60 mls/hr IV .[id number] [facility] Last Admin: 10/13/17 13:51 Dose: 60 mls/hr Meropenem (Merrem Iv 1 Gm Premix) 50 mls @ 100 mls/hr IVPB Q8 [facility] PRN Reason: Protocol Stop: 10/20/17 22:01 Last Admin: 10/14/17 05:23 Dose: 100 mls/hr Insulin Human Regular (Humulin R Low) 0 units SC ACHS [facility] PRN Reason: Protocol Last Admin: 10/13/17 22:51 Dose: Not Given Metoprolol Tartrate (Lopressor) 25 mg PO BID [facility] Last Admin: 10/13/17 17:54 Dose: 25 mg Ondansetron HCl (Zofran Inj) 4 mg IVP Q6H PRN PRN Reason: Nausea/Vomiting Pantoprazole Sodium (Protonix Inj) 40 mg IVP DAILY [facility] Last Admin: 10/13/17 09:59 Dose: 40 mg - Labs Labs: PT 12.3 SECONDS (9.4-12.5) 10/11/17 14:40 INR 1.08 (0.93-1.08) 10/11/17 14:40 APTT 28.1 Seconds (25.1-36.5) 10/11/17 14:40 - Constitutional Appears: Non-toxic, Chronically Ill - Head Exam Head Exam: NORMAL INSPECTION - Neck Exam Neck Exam: absent: Meningismus - Respiratory Exam Respiratory Exam: Decreased Breath Sounds - Cardiovascular Exam Cardiovascular Exam: +S1, +S2 - GI/Abdominal Exam GI & Abdominal Exam: Soft. absent: Tenderness Assessment and Plan - Assessment and Plan (Free Text) Plan: Assessment systemic inflammatory response syndrome, consider due to acute pancreatitis R/O sepsis from Left lower lobe HCAP CAD S/P CABG about 5-6 days ago history of TIA DM S/P Claude filter placement peripheral vascular disease Plan on doxycycline and Merrem day 3 to complete 4-7 days will continue to monitor clinically
--- NOTE | 2017-10-14 19:05 | PN ---
DATE: SUBJECTIVE: The patient is 72-year-old, still complained of diarrhea, had one bowel movement since morning. Does not have much appetite. He stated he feels better than before. PHYSICAL EXAMINATION VITAL SIGNS: He is afebrile, pulse 92, respiration 20, blood pressure 137/71. LUNGS: Bilateral fair airflow. No rhonchi or crackle. HEART: S1 and S2 audible. ABDOMEN: Soft, nontender. No rebound, no guarding. NEUROLOGIC: The patient is awake and alert, able to communicate, ambulatory. LABORATORY DATA: Sodium 139, potassium 3.6, chloride 108, CO2 of 20, BUN 8, creatinine 0.9, blood sugar of 135. Urinalysis is unremarkable. ASSESSMENT: 1. Gastroenteritis. 2. Pancreatitis, etiology still unclear. CT scan with contrast shows only left pleural effusion, probably secondary to open heart surgery. 3. Hypertension. 4. Hyperlipidemia. 5. Insulin-dependent diabetes. PLAN: We will continue to monitor the patient's blood sugar. He will be given one dose of Imodium. We will continue him on meropenem. Continue IV fluid. We will reevaluate the patient in a.m. Ellie Osorio MD
[2017-10-15] MEDS: Meropenem IV 1 gm in NS 50 ML IVPB SCH (05:16)
[2017-10-15] MEDS: Sodium Chloride 0.9% 1,000 ML IV SCH (05:17)
[2017-10-15] MEDS ORDERED: Pantoprazole 40 mg EC Tab PO SCH (07:30)
[2017-10-15 14:33] VITALS: BP 139/71; PULSE 80; RESP 20; TEMP 98.4; O2SAT 98
--- NOTE | 2017-10-15 16:53 | CP.PCM.PN ---
Subjective - Date & Time of Evaluation Date of Evaluation: 10/15/17 Time of Evaluation: 12:05 - Subjective Subjective: Eating well, no fevers, not in distress, no abdominal pain, no SOB or cough. Objective - Vital Signs/Intake and Output Vital Signs (last 24 hours): Temp Pulse Resp BP Pulse Ox 98.8 F 88 16 152/90 H 100 10/15/17 07:45 10/15/17 07:45 10/15/17 07:45 10/15/17 07:45 10/15/17 07:45 Intake and Output: 10/15/17 10/15/17 06:59 18:59 Intake Total 360 Output Total 1400 Balance -1040 - Medications Medications: Current Medications Aspirin (Aspirin Chewable) 81 mg PO DAILY [facility] Last Admin: 10/14/17 09:39 Dose: 81 mg Clopidogrel Bisulfate (Plavix) 75 mg PO DAILY [facility] Last Admin: 10/14/17 09:39 Dose: 75 mg Doxycycline Hyclate (Doryx) 100 mg PO Q12 [facility] PRN Reason: Protocol Last Admin: 10/14/17 21:59 Dose: 100 mg Sodium Chloride (Sodium Chloride 0.9%) 1,000 mls @ 60 mls/hr IV .[id number] [facility] Last Admin: 10/15/17 05:17 Dose: 60 mls/hr Meropenem (Merrem Iv 1 Gm Premix) 50 mls @ 100 mls/hr IVPB Q8 [facility] PRN Reason: Protocol Stop: 10/20/17 22:01 Last Admin: 10/15/17 05:16 Dose: 100 mls/hr Insulin Human Regular (Humulin R Low) 0 units SC ACHS [facility] PRN Reason: Protocol Last Admin: 10/14/17 22:53 Dose: Not Given Metoprolol Tartrate (Lopressor) 25 mg PO BID [facility] Last Admin: 10/14/17 18:55 Dose: 25 mg Ondansetron HCl (Zofran Inj) 4 mg IVP Q6H PRN PRN Reason: Nausea/Vomiting Pantoprazole Sodium (Protonix Ec Tab) 40 mg PO ACB [facility] Last Admin: 10/15/17 08:12 Dose: 40 mg - Labs Labs: 10/14/17 07:20 10/14/17 07:20 PT 12.3 SECONDS (9.4-12.5) 10/11/17 14:40 INR 1.08 (0.93-1.08) 10/11/17 14:40 APTT 28.1 Seconds (25.1-36.5) 10/11/17 14:40 - Constitutional Appears: Non-toxic, Chronically Ill - Head Exam Head Exam: NORMAL INSPECTION - Neck Exam Neck Exam: absent: Meningismus - Respiratory Exam Respiratory Exam: Decreased Breath Sounds - Cardiovascular Exam Cardiovascular Exam: +S1, +S2 - GI/Abdominal Exam GI & Abdominal Exam: Soft. absent: Tenderness Assessment and Plan - Assessment and Plan (Free Text) Plan: Assessment systemic inflammatory response syndrome, consider due to acute pancreatitis - unlikely Left lower lobe HCAP CAD S/P CABG about 5-6 days ago history of TIA DM S/P Claude filter placement peripheral vascular disease Plan on doxycycline and Merrem day 4 and will d/c antibiotics will continue to monitor clinically
--- NOTE | 2017-10-15 17:47 | DS ---
HISTORY OF PRESENT ILLNESS: The patient is 72 years old, seen and examined, lying in bed, seems to be comfortable. No nausea, vomiting. No diarrhea. No fever. No chills. PHYSICAL EXAMINATION: VITAL SIGNS: The patient is afebrile, pulse 88, respirations 16, blood pressure 152/90. LUNGS: Bilateral good airflow. No rhonchi or crackle. HEART: S1 and S2 audible. ABDOMEN: Soft. Nontender. No rebound. No guarding. NEUROLOGIC: The patient is awake, alert, oriented, communicative. LABORATORY EXAM: WBC is 3.5, hemoglobin 8.5, hematocrit 26.1, platelet Of 267. Chemistry: Sodium 139, potassium 3.6, chloride 108, CO2 of 20, BUN 8, creatinine 0.9, blood sugar of 99, lipase 609. ASSESSMENT: 1. Gastroenteritis. 2. Pancreatitis. 3. Recent open heart surgery. 4. Hypertension. 5. Hyperlipidemia. PLAN: Currently, the patient is stable. 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 He can go back to metoprolol, Plavix, metformin and aspirin. Ellie Osorio MD
== END 2017-10-15 16:55 | disposition home or self-care (01) | DRG 439 ==
LOC: ED 13:52 → ERH 15:48 → 5RSO 17:50
PROVIDERS: ADMIT Internal Medicine; ATTEND Internal Medicine
DX: K85.90 Acute pancreatitis without necrosis or infection, unspecified (principal); R65.10 Systemic inflammatory response syndrome (SIRS) of non-infectious origin without acute organ dysfunction; J90 Pleural effusion, not elsewhere classified; K52.9 Noninfective gastroenteritis and colitis, unspecified; E11.51 Type 2 diabetes mellitus with diabetic peripheral angiopathy without gangrene; I25.10 Atherosclerotic heart disease of native coronary artery without angina pectoris; I10 Essential (primary) hypertension; R26.81 Unsteadiness on feet; D64.9 Anemia, unspecified; E78.5 Hyperlipidemia, unspecified; Z79.4 Long term (current) use of insulin; Z86.73 Personal history of transient ischemic attack (TIA), and cerebral infarction without residual deficits; Z87.891 Personal history of nicotine dependence; Z95.1 Presence of aortocoronary bypass graft